=== PATIENT | female | born 1990 | race Two or more races ===

== ENCOUNTER 2022-03-11 20:59 | Emergency (ER) | payer OTHER ==
[~2022-03-11] VITALS: Ht 152.4 cm; Wt 77.0 kg
[2022-03-12 00:34] VITALS: BP 143/79
[2022-03-12] MEDS ORDERED: IBUP800T27 PO (00:35)
== END 2022-03-12 00:36 | disposition home or self-care (01) ==
LOC: EDBD 20:59 → ER 21:02
DX: M79.641 Pain in right hand (principal); M25.531 Pain in right wrist; M79.89 Other specified soft tissue disorders; Y04.8XXA Assault by other bodily force, initial encounter; Y93.89 Activity, other specified; Y92.89 Other specified places as the place of occurrence of the external cause; Y99.8 Other external cause status
CPT/HCPCS: 73110; 73130